=== PATIENT | female | born 1945 | race Two or more races ===

== ENCOUNTER 2024-03-03 18:36 | Emergency (ER) | payer OTHER ==
[~2024-03-03] VITALS: Ht 154.9 cm; Wt 63.5 kg
[2024-03-03] MEDS ORDERED: SIMVASTATIN5 MG PO (19:02)
[2024-03-03] MEDS ORDERED: CARTIA XT120 MG PO (19:02)
[2024-03-03] MEDS ORDERED: ZESTRIL20 MG PO (19:02)
[2024-03-03] MEDS ORDERED: SYNTHROID100 MCG PO (19:02)
[2024-03-03 21:11] LABS: HEMATOCRIT 39.1 % (36.0-45.00); HEMOGLOBIN 13.3 g/dL (12.0-15.00); MEAN CELL VOLUME 92.8 fL (80.00-100.00); MEAN CORPUSCULAR HEMOGLOBIN 31.6 pg (27.00-32.0); PLATELET COUNT 279 K/uL (150-450); RED BLOOD COUNT 4.21 M/uL (4.00-6.00); RED CELL DISTRIBUTION WIDTH 13.8 % (11.5-14.5)
[2024-03-03 21:59] LABS: PH,URINE 5.5 (5.0-8.0); URINE APPEARANCE Cloudy; URINE BILIRRUBIN Small (NEGATIVE); URINE BLOOD Moderate; URINE COLOR Orange; URINE GLUCOSE Negative (NEGATIVE); URINE KETONE Negative (NEGATIVE); URINE LEUKOCYTE Large; URINE NITRATE Positive
[2024-03-03 22:03] LABS: URINE EPITHELIAL CELLS 7.7 uL (0.0-38.8); URINE RBC 67.6 uL (0.0-20.8); URINE WBC 1181.7 uL (0.0-23.2)
[2024-03-03 22:10] LABS: URINE BACTERIA > 9821.5 uL (0.0-1933); URINE CAST 0.61 uL (0.0-1.40); URINE PROTEIN 100 (NEGATIVE)
[2024-03-03] MEDS ORDERED: CEFTRIAXONE SODIUM 1,000 MG VIAL IM ONE (23:00)
== END 2024-03-03 23:53 | disposition home or self-care (01) ==
LOC: ER 18:37
PROVIDERS: Preventive Medicine Public Health & General Preventive Medicine
DX: N39.0 Urinary tract infection, site not specified (principal); I10 Essential (primary) hypertension; E03.9 Hypothyroidism, unspecified; Z85.3 Personal history of malignant neoplasm of breast
CPT/HCPCS: 36415; 96372; 99283; J0696